=== PATIENT | female | born 1995 | race Caucasian/White ===

== ENCOUNTER → 2020-04-04 | Outpatient (CLI) | payer BC | LOC: LAB FS 17:30 | PROVIDERS: ATTEND Family Medicine | DX: Z01.419 Encounter for gynecological examination (general) (routine) without abnormal findings (principal) | CPT/HCPCS: 36415; 87210; 87491; 87591 ==

== ENCOUNTER → 2020-04-22 | Outpatient (CLI) | payer BC ==
[2020-04-22 11:15] LABS: BASOPHILS % (AUTO) 0 % (0-10); EOSINOPHILS # (AUTO) 0.1 10^3/uL (0.0-0.3); EOSINOPHILS % (AUTO) 1 % (0-10); HEMATOCRIT 40 % (35-52); HEMOGLOBIN 13.1 G/DL (11.5-16.0); LYMPHOCYTES # (AUTO) 2.8 X 10^3 (1.0-4.0); LYMPHOCYTES % (AUTO) 30 % (12-44); MEAN CORPUSCULAR HEMOGLOBIN 28 PG (25-34); MEAN CORPUSCULAR HGB CONC 33 G/DL (32-36); MEAN CORPUSCULAR VOLUME 85 FL (80-99); MEAN PLATELET VOLUME 9.8 FL (7.4-10.4); MONOCYTES # (AUTO) 0.8 X 10^3 (0.0-1.0); MONOCYTES % (AUTO) 8 % (0-12); NEUTROPHILS # (AUTO) 5.7 X 10^3 (1.8-7.8); NEUTROPHILS % (AUTO) 61 % (42-75); PLATELET COUNT 236 10^3/uL (130-400); RED CELL DISTRIBUTION WIDTH 13.7 % (10.0-14.5); WHITE BLOOD COUNT 9.4 10^3/uL (4.3-11.0)
== END ==
LOC: LAB FS 10:35
PROVIDERS: ATTEND Family Medicine
DX: Z34.00 Encounter for supervision of normal first pregnancy, unspecified trimester (principal)
CPT/HCPCS: 36415; 80055; 86703; 87088

== ENCOUNTER → 2020-05-09 | Outpatient (CLI) | payer BC ==
[2020-05-09 10:37] LABS: CLARITY,URINE CLEAR; COLOR,URINE DARK YELLOW; PROTEIN,URINE TRACE (NEGATIVE)
[2020-05-09 10:38] LABS: BACTERIA,URINE FEW /HPF; BILIRUBIN,URINE NEGATIVE (NEGATIVE); GLUCOSE, URINE (UA) NEGATIVE (NEGATIVE); KETONES,URINE TRACE (NEGATIVE); LEUKOCYTE ESTERASE ,URINE 1+ (NEGATIVE); NITRITE,URINE NEGATIVE (NEGATIVE)
== END ==
LOC: LAB FS 09:28
PROVIDERS: ATTEND Family Medicine
DX: R30.9 Painful micturition, unspecified (principal)
CPT/HCPCS: 81000; 87088

== ENCOUNTER → 2020-06-14 | Outpatient (CLI) | payer BC | LOC: LAB FS 09:08 | PROVIDERS: ATTEND Family Medicine | DX: Z34.90 Encounter for supervision of normal pregnancy, unspecified, unspecified trimester (principal); Z3A.00 Weeks of gestation of pregnancy not specified | CPT/HCPCS: 36415; 82105; 84702; 86336 ==

== ENCOUNTER → 2020-08-02 | Outpatient (CLI) | payer BC ==
[2020-08-02 15:14] LABS: CLARITY,URINE CLEAR; COLOR,URINE DARK YELLOW
[2020-08-02 15:15] LABS: BACTERIA,URINE TRACE /HPF; BILIRUBIN,URINE NEGATIVE (NEGATIVE); GLUCOSE, URINE (UA) NEGATIVE (NEGATIVE); KETONES,URINE TRACE (NEGATIVE); LEUKOCYTE ESTERASE ,URINE NEGATIVE (NEGATIVE); NITRITE,URINE NEGATIVE (NEGATIVE); PROTEIN,URINE NEGATIVE (NEGATIVE); SQUAMOUS EPITHELIAL CELL,UR 0-2 /HPF
== END ==
LOC: LAB FS 14:45
PROVIDERS: ATTEND Family Medicine
DX: R35.0 Frequency of micturition (principal); R30.0 Dysuria
CPT/HCPCS: 81000

== ENCOUNTER → 2020-09-12 | Outpatient (CLI) | payer BC ==
[2020-09-12 10:17] LABS: HEMOGLOBIN 10.8 G/DL (11.5-16.0); MEAN PLATELET VOLUME 9.2 FL (7.4-10.4); WHITE BLOOD COUNT 11.5 10^3/uL (4.3-11.0)
== END ==
LOC: LAB FS 09:38
PROVIDERS: ATTEND Family Medicine
DX: Z34.03 Encounter for supervision of normal first pregnancy, third trimester (principal)
CPT/HCPCS: 36415; 82950; 85027; 86780

== ENCOUNTER → 2020-10-18 | Outpatient (CLI) | payer BC | LOC: LABNPT 14:33 | PROVIDERS: ATTEND Family Medicine | DX: J02.9 Acute pharyngitis, unspecified (principal) | CPT/HCPCS: 87070 ==

== ENCOUNTER 2020-11-21 03:33 | Inpatient (IN) | payer BC ==
[2020-11-21] VITALS (47 sets, daily range): BP systolic 80–147; BP diastolic 42–100
[~2020-11-21] VITALS: Ht 185.5 cm; Wt 131.6 kg
--- NOTE | 2020-11-21 03:40 | NUR ---
ANNELIESE PARKER presented to unit via ambulation from ED, accompanied by Tamica Lauren, advanced manufacturing technician & SO, with c/o WATER BROKE. ANNELIESE PARKER weighed, gowned, voided, and to bed. EFHM and TOCO applied, VS taken. ANNELIESE PARKER oriented to bed controls, call light, TV, heat, and A/C controls.
[2020-11-21] MEDS: D5 LR IV SOLUTION 1,000 ML IV SCH ×2 (04:42→15:17)
[2020-11-21 04:49] LABS: BASOPHILS % (AUTO) 0 % (0-10); EOSINOPHILS # (AUTO) 0.1 10^3/uL (0.0-0.3); EOSINOPHILS % (AUTO) 1 % (0-10); HEMATOCRIT 32 % (35-52); HEMOGLOBIN 9.9 g/dL (11.5-16.0); LYMPHOCYTES # (AUTO) 2.5 10^3/uL (1.0-4.0); LYMPHOCYTES % (AUTO) 24 % (12-44); MEAN CORPUSCULAR HEMOGLOBIN 25 pg (25-34); MEAN CORPUSCULAR HGB CONC 31 g/dL (32-36); MEAN CORPUSCULAR VOLUME 81 fL (80-99); MEAN PLATELET VOLUME 10.3 fL (9.0-12.2); MONOCYTES # (AUTO) 0.8 10^3/uL (0.0-1.0); MONOCYTES % (AUTO) 8 % (0-12); NEUTROPHILS % (AUTO) 67 % (42-75); PLATELET COUNT 310 10^3/uL (130-400); WHITE BLOOD COUNT 10.4 10^3/uL (4.3-11.0)
[2020-11-21] MEDS ORDERED: SERT50TA2 PO (04:55)
[2020-11-21] MEDS ORDERED: PREN-142 PO (04:55)
[2020-11-21] MEDS ORDERED: CATHETER FLUSH 10 ML SYR IV SCH ×2 (06:00→22:00)
--- NOTE | 2020-11-21 06:52 | History & Physical-OB ---
OB - Chief Complaint & HPI Date/Time Date of Admission: Date of Admission: Nov 21, 2020 at 04:10 Date seen by a Provider: Nov 21, 2020 Time Seen by a Provider: 07:35 Chief Complaint/History OB-Reason for Admission/Chief: Rupture of Membranes Hx : 1 Hx Para: 0 Expected Date of Delivery: Dec 03, 2020 Gestational Age in Weeks: 38 Gestational Age in Days: 2 Admission Nurse Assessment Rev: Yes History of Labs A neg Antibody neg RI RPR NR HBsAg NR HIV NR GC neg GBS neg Allergies and Home Medications Allergies Coded Allergies: No Known Drug Allergies (Unverified , 11/21/20) Home Medications Vit No.124/Iron/FA 1 Each Tablet, 1 EACH PO DAILY, (Reported) Sertraline HCl 50 Mg Tablet, 50 MG PO DAILY, (Reported) Patient Home Medication List Home Medication List Reviewed: Yes OB - History Hx of Present Care: Yes Ultrasounds: Normal mid trimester US Obstetrical Complications: None Medical Complications: None Other Concerns: Late transfer of care from Dr. Baum Patient Past Medical History n/a OB - Admission Exam Physical Exam Vitals: Vital Signs HEENT: NCAT Heart: Rhythm Normal Lungs: Clear Abdomen: Gravid Extremities: Normal Reflexes: Normal Cervical Dilatation: 1cm Effacement: 75% Station: -2 Membranes: Ruptured Amniotic Fluid: Clear Heart Rate: 130's Accelerations: Accelerations Present Decelerations: No Decelerations Short Term Variability: Present Shelter Variability: Average (6-25) Contractions on Admission: >10 Minutes Apart Labs Laboratory Tests Test 11/21/20 04:30 Range/Units White Blood Count 10.4 4.3-11.0 10^3/uL Red Blood Count 3.90 3.80-5.11 10^6/uL Hemoglobin 9.9 L 11.5-16.0 g/dL Hematocrit 32 L 35-52 % Mean Corpuscular Volume 81 80-99 fL Mean Corpuscular Hemoglobin 25 25-34 pg Mean Corpuscular Hemoglobin Concent 31 L 32-36 g/dL Red Cell Distribution Width 14.3 10.0-14.5 % Platelet Count 310 130-400 10^3/uL Mean Platelet Volume 10.3 9.0-12.2 fL Immature Granulocyte % (Auto) 1 % Neutrophils (%) (Auto) 67 42-75 % Lymphocytes (%) (Auto) 24 12-44 % Monocytes (%) (Auto) 8 0-12 % Eosinophils (%) (Auto) 1 0-10 % Basophils (%) (Auto) 0 0-10 % Neutrophils # (Auto) 7.0 1.8-7.8 10^3/uL Lymphocytes # (Auto) 2.5 1.0-4.0 10^3/uL Monocytes # (Auto) 0.8 0.0-1.0 10^3/uL Eosinophils # (Auto) 0.1 0.0-0.3 10^3/uL Basophils # (Auto) 0.0 0.0-0.1 10^3/uL Immature Granulocyte # (Auto) 0.1 0.0-0.1 10^3/uL OB - Assessment/Plan/Diagnosis Assessment Assessment: rupture of membranes Admission Dx 25 yo @ 38.2 SROM GBS neg Admission Status: Inpatient Order (span 2 midnights) Reason for Inpatient Admission: SROM at 38 .2 Plan Plan: Expectant Management Other Plan Pitocin if dysfunction contraction pattern CLARY RUBIO DO Nov 21, 2020 06:52
[2020-11-21] MEDS: OXYTOCIN PRE-MIX DRIP 500 ML IV SCH ×2 (07:17→15:45)
[2020-11-21] MEDS ORDERED: fentaNYL 2 mcg/ml BUPIVA 0.125 100 ML ONE (09:52)
[2020-11-21] MEDS ORDERED: BUPIVACAINE 0.25% 30 ML (SENSORCAINE) VIAL ONE (10:22)
[2020-11-21] MEDS ORDERED: fentaNYL INJECTION 100 MCG/2 ML AMP ONE (10:22)
[2020-11-21] MEDS ORDERED: NALOXONE 0.4 MG/ML 1 ML (NARCAN) VIAL IV PRN (10:30)
[2020-11-21] MEDS ORDERED: CATHETER FLUSH 10 ML SYR IV PRN (10:30)
[2020-11-21] MEDS ORDERED: LACTATED RINGERS 1,000 ML IV ONE (10:30)
[2020-11-21] MEDS ORDERED: fentaNYL 2 mcg/ml BUPIVA 0.125 100 ML IV SCH (10:30)
[2020-11-21] MEDS ORDERED: LIDOCAINE/EPI 2% 1:200,00 (XYLOCAINE) 10 ML VIAL ONE (14:20)
--- NOTE | 2020-11-21 15:12 | NUR ---
spontaneous vaginal delivery of intact placenta by dr cifuentes. pitocion increased to 999ml/hr per dr rehman. assessing perineum for tears and lacerations. 1514 repair began using 3.[address]ide[address] cifuentes performing fundal massage , assessing vaginal bleeding. no clots expressed.
--- NOTE | 2020-11-21 15:25 | NUR ---
ffu/3. light flow no clots expressed. pericare performed by this RN. pitocin infusing as ordered. 1531 assisted out of stirrups. repositioned to high fowlers. s/o remains at bedside. reviewed diet order and room service. verbalized understanding. 1540 infant skin to skin at breast. immediate latch to breast. good suck noted. mother pleased.
--- NOTE | 2020-11-21 15:55 | NUR ---
ffu/1 light flow no clots expressed. denies need at this time.
--- NOTE | 2020-11-21 16:20 | NUR ---
fundal massage. u/1 light to moderate flow no clots expressed by Georgiana robles RN. IV saline locked.
--- NOTE | 2020-11-21 16:32 | NUR ---
FFu/1 light flow no clots expresed.
--- NOTE | 2020-11-21 16:54 | OB Labor & Delivery Record ---
L&D History Date of Service Date of Service: Nov 21, 2020 History Expected Date of Delivery: Dec 03, 2020 Gestational Age in Weeks: 38 Hx : 1 Hx Para: 0 Complications Events: Routine care Operative Indications (Cesarea: N/A-Vaginal Delivery Intrapartal Events: None L&D Stage1 Stage One Onset of Labor - Date: Nov 21, 2020 Monitors and Tracing Monitor Mode: External Heart Rate: 125 Monitor Accelerations: Uniform Monitor Decelerations: None Station: -1 Residential Specialist Variability: Average (6-10) Short Term Variability: Present Vital Signs VS - Last 72 Hours, by Label 11/21/20 11/21/20 11/21/20 11/21/20 03:51 03:51 07:15 07:30 Temp 36.7 36.7 Pulse 113 113 91 101 Resp 18 18 18 18 B/P (MAP) 140/87 (104) 134/86 (102) 129/74 (92) Pulse Ox 99 99 99 99 O2 Delivery Room Air Room Air Room Air Room Air 11/21/20 11/21/20 11/21/20 11/21/20 07:45 08:00 08:15 08:30 Temp 36.8 Pulse 110 104 92 93 Resp 18 18 18 18 B/P (MAP) 128/70 (89) 119/68 (85) 127/70 (89) 117/72 (87) O2 Delivery Room Air Room Air Room Air Room Air 11/21/20 11/21/20 11/21/20 11/21/20 08:45 09:00 09:15 09:30 Pulse 96 90 80 123 Resp 18 18 18 18 B/P (MAP) 109/72 (84) 127/75 (92) 128/75 (92) 132/76 (94) O2 Delivery Room Air Room Air Room Air Room Air 11/21/20 11/21/20 11/21/20 11/21/20 09:45 10:00 10:15 10:30 Temp 36.9 Pulse 72 69 85 69 Resp 18 18 18 18 B/P (MAP) 132/74 (93) 126/70 (88) 136/73 (94) 147/82 (103) Pulse Ox 99 O2 Delivery Room Air Room Air Room Air Room Air 11/21/20 11/21/20 11/21/20 2/1/21 10:35 10:40 10:45 10:50 Pulse 72 106 98 92 Resp 18 18 18 18 B/P (MAP) 138/70 (92) 131/76 (94) 109/60 (76) 89/52 (64) Pulse Ox 100 100 O2 Delivery Room Air Room Air Room Air Room Air 11/21/20 11/21/20 11/21/20 11/21/20 10:55 11:00 11:05 11:10 Pulse 68 74 85 79 Resp 18 18 16 18 B/P (MAP) 80/42 (55) 91/50 (64) 95/55 (68) 89/53 (65) Pulse Ox 100 100 100 100 O2 Delivery Room Air Room Air Room Air Room Air 11/21/20 11/21/20 11/21/20 11/21/20 11:30 11:40 11:55 12:15 Pulse 83 92 96 96 Resp 18 18 18 18 B/P (MAP) 96/51 (66) 96/52 (67) 104/56 (72) 95/51 (66) Pulse Ox 100 100 100 100 O2 Delivery Room Air Room Air Room Air Room Air 11/21/20 11/21/20 11/21/20 11/21/20 12:25 12:40 12:55 13:15 Pulse 96 113 99 101 Resp 18 18 18 18 B/P (MAP) 95/54 (68) 97/54 (68) 100/56 (71) 103/58 (73) Pulse Ox 99 99 99 98 O2 Delivery Room Air Room Air Room Air Room Air 11/21/20 11/21/20 11/21/20 13:25 13:40 14:00 Pulse 111 108 112 Resp 18 18 18 B/P (MAP) 103/58 (73) 139/77 (97) 126/73 (90) Pulse Ox 100 100 100 O2 Delivery Room Air Room Air Room Air Rupture of Membranes Spontaneous Ruture of Membrane: Yes Amniotic Membrane Rupture Time: 0215 Amniotic Membrane Fluid Desc.: Clear Vaginal Bleeding Description: Normal Show Progress/Notes Patient presented with SROM 1 cm dilated and not keturah. Started on pitocin augmentation max dose of 10 mu/min, she received an epidural and progressed to complete and 0 station L&D Stage2 Stage Two Stage II Date: Nov 21, 2020 Monitors and Tracing Monitor Mode: External Heart Rate: 125 Monitor Decelerations: None Short Term Variability: Present Position: Right Occiput Anterior Presentation: Vertex Cord Descript/Complications Cord Vessel Description: 3 Vessels Complications nuchal cord reduced x 1 Delivery Type Delivery Method: Spontaneous Vaginal Anterior Shoulder: Left Episiotomy/Perineal Laceration Laceraction(s)/Extensions: Yes Episiotomy Description: Midline, Perineal Extension/lac, 2nd degree Degree (describe repair) 2nd degree perineal laceration repaired using 3-0 rapide in usual fashion Condition of Delivery 1 minute Comment: 8 5 minute Comment: 9 Notes Live female weight 8 lbs 14 oz. Condition of Condition of : Living Exam: No Observed Abnormalities Resuscitation Resuscitation: N/A - Spontaneous Resp L&D Stage3 Stage Three Stage III Date: Nov 21, 2020 Pictocin Pitocin Administration mu/min: 10 Pitocin ml/hr: 10 Pitocin Administration Comment: 30 mu wide open at delivery of placenta Placenta Delivery Placenta Delivery: Spontaneous Delivery Summary Summary Estimated blood loss (mL): 350 Attending at delivery: Christiano Rubio DO Condition of Delivery Examined: Cervix Examined, Uterus Explored Post Hemorrhage: No Condition of Mother stable Condition of Infant (s) stable CHRISTIANO RUBIO DO Nov 21, 2020 16:54
--- NOTE | 2020-11-21 16:55 | NUR ---
infant placed skin to skin per mothers request. immediate latch with heavy staff assistance with positioning and latch. mother showing no initiative. continuing to offer support as needed.
[2020-11-21] MEDS ORDERED: BENZOCAINE/MENTHOL (DERMOPLAST) 60 ML CAN TP PRN (17:00)
[2020-11-21] MEDS ORDERED: MEASLES,MUMPS,RUBELLA 1 EA INJ SQ ONE (17:00)
[2020-11-21] MEDS ORDERED: WITCH HAZEL(TUCKS) 40 EA JAR TOP PRN (17:00)
[2020-11-21] MEDS ORDERED: DIBUCAINE (NUPERCAINAL) 1% OINT 30 GM TOP PRN (17:00)
[2020-11-21] MEDS ORDERED: OXYTOCIN PRE-MIX DRIP 500 ML IV SCH (17:00)
[2020-11-21] MEDS ORDERED: TETANUS,DIPTH,PERTUSS P/F (BOOSTRIX) 0.5 ML VIAL IM ONE (17:00)
[2020-11-21] MEDS ORDERED: HYDROcodone/APAP 5 MG/325 MG (LORTAB) TAB PO PRN (17:00)
--- NOTE | 2020-11-21 17:00 | Discharge Inst-Women's Service ---
Discharge Inst-Women's Serv Depart Medication/Instructions New, Converted or Re-Newed RX: RX on Chart Final Diagnosis PPD 1 NVD Problems Reviewed?: Yes Consults/Follow Up Additional Follow Up: Yes Orders/Referrals Dr. Rubio in 6 weeks Activity Activity: Activity as Tolerated Driving Instructions: No Driving for 1 Week NO SMOKING: NO SMOKING Nothing Inside Vagina: No Douching, No Mio, No Tampons Diet Discharge Diet: No Restrictions Symptoms to Report to : Bleeding Excessive, Pain Increased, Fever Over 101 Degrees F, Vaginal Bleeding Increase, Questions/Concerns For Any Problems or Questions: Contact Your Physician CLARY RUBIO DO Nov 21, 2020 17:00
[2020-11-21] MEDS ORDERED: IBUP-844 PO (17:02)
[2020-11-21] MEDS ORDERED: DCS100C PO (17:02)
[2020-11-21] MEDS ORDERED: ACHD5005 PO (17:02)
[2020-11-21] MEDS: IBUPROFEN 600 MG (MOTRIN) TAB PO SCH ×2 (18:08→23:33)
--- NOTE | 2020-11-21 20:00 | NUR ---
RN to room, Pt denies pain, VS WNL, plan of care reviewed with pt and on infant. Feeding record explained. Fresh ice water given.
[2020-11-21] MEDS: DOCUSATE SODIUM 100 MG (COLACE) CAP PO SCH (20:54)
--- NOTE | 2020-11-21 21:15 | NUR ---
Pt up to void at this time, void noted, pericare explained, then pt to chair to breastfeed .
[2020-11-22 04:00] VITALS: BP 114/62
--- NOTE | 2020-11-22 04:00 | NUR ---
Rn to room, spit up and pt needing help, pt holding infant on side and patting 's back, Rn grabbed infant and sat up and burped infant and bulb suctioned mouth. Clear/yellow mucous noted. to left breast with shield. Repeated attempts for latch, latched a few times after repeated attempts and fed for maybe 5min. Pt tearful and exhausted, discussed sns feeding or finger feeding. Pt desires RN to finger feed and to nsy while parents sleep.
[2020-11-22] MEDS: IBUPROFEN 600 MG (MOTRIN) TAB PO SCH ×3 (05:33→20:18)
[2020-11-22 06:13] LABS: BASOPHILS % (AUTO) 0 % (0-10); EOSINOPHILS % (AUTO) 0 % (0-10); HEMATOCRIT 27 % (35-52); HEMOGLOBIN 8.3 g/dL (11.5-16.0); LYMPHOCYTES # (AUTO) 2.5 10^3/uL (1.0-4.0); LYMPHOCYTES % (AUTO) 21 % (12-44); MEAN CORPUSCULAR HEMOGLOBIN 26 pg (25-34); MEAN CORPUSCULAR HGB CONC 31 g/dL (32-36); MEAN CORPUSCULAR VOLUME 82 fL (80-99); MEAN PLATELET VOLUME 10.1 fL (9.0-12.2); MONOCYTES # (AUTO) 0.9 10^3/uL (0.0-1.0); MONOCYTES % (AUTO) 8 % (0-12); NEUTROPHILS # (AUTO) 8.6 10^3/uL (1.8-7.8); NEUTROPHILS % (AUTO) 71 % (42-75); PLATELET COUNT 248 10^3/uL (130-400); WHITE BLOOD COUNT 12.2 10^3/uL (4.3-11.0)
--- NOTE | 2020-11-22 07:35 | Postpartum Progress Note ---
Note Note Day # 1 Subjective: Patient is without complaints. Ambulating, voiding. Tolerating a regular diet without nausea or vomiting. Normal lochia. Pain is well controlled with oral pain medications. Objective: Physical Exam: General - Alert and oriented, no apparent distress Abdomen - Soft, appropriately tender to palpation, non-distended, fundus firm at umbilicus Extremities - no edema, negative Luis Alberto's bilaterally Assessment: PPD 1 NVD Acute blood loss anemia Plan: Routine care. Encourage breast feeding. Encourage ambulation. Ferrous sulfate supplementation. Plan for discharge today, possibly tomorrow Vitals - Labs Vital Signs - I&O Vital Signs Date Time Temp Pulse Resp B/P (MAP) Pulse Ox O2 Delivery O2 Flow Rate FiO2 11/22/20 04:00 36.7 103 18 114/62 (79) Room Air 11/21/20 23:34 36.8 107 18 116/64 (81) 98 Room Air 11/21/20 20:00 36.8 120 18 120/72 (88) 98 Room Air 11/21/20 17:12 83 18 122/66 (84) 100 Room Air 11/21/20 16:55 98 18 147/70 (95) 100 Room Air 11/21/20 16:40 36.8 107 18 114/60 (78) 100 Room Air 11/21/20 16:25 37.1 98 18 124/60 (81) 100 Room Air 11/21/20 16:10 113 18 133/78 (96) 100 Room Air 11/21/20 15:55 37.0 122 18 113/59 (77) 100 Room Air 11/21/20 15:25 37.7 115 18 104/54 (71) 100 Room Air 11/21/20 15:00 134 18 128/61 (83) 100 Room Air 11/21/20 14:45 148 18 139/100 (113) 100 Room Air 11/21/20 14:30 115 18 129/70 (89) 100 Room Air 11/21/20 14:15 37.3 110 18 120/76 (91) 100 Room Air 11/21/20 14:00 112 18 126/73 (90) 100 Room Air 11/21/20 13:40 108 18 139/77 (97) 100 Room Air 11/21/20 13:25 111 18 103/58 (73) 100 Room Air 11/21/20 13:15 101 18 103/58 (73) 98 Room Air 11/21/20 12:55 99 18 100/56 (71) 99 Room Air 11/21/20 12:40 113 18 97/54 (68) 99 Room Air 11/21/20 12:25 96 18 95/54 (68) 99 Room Air 11/21/20 12:15 96 18 95/51 (66) 100 Room Air 11/21/20 11:55 96 18 104/56 (72) 100 Room Air 11/21/20 11:40 92 18 96/52 (67) 100 Room Air 11/21/20 11:30 83 18 96/51 (66) 100 Room Air 11/21/20 11:10 79 18 89/53 (65) 100 Room Air 11/21/20 11:05 85 16 95/55 (68) 100 Room Air 11/21/20 11:00 74 18 91/50 (64) 100 Room Air 11/21/20 10:55 68 18 80/42 (55) 100 Room Air 11/21/20 10:50 92 18 89/52 (64) 100 Room Air 11/21/20 10:45 98 18 109/60 (76) 100 Room Air 11/21/20 10:40 106 18 131/76 (94) Room Air 11/21/20 10:35 72 18 138/70 (92) Room Air 11/21/20 10:30 69 18 147/82 (103) Room Air 11/21/20 10:15 36.9 85 18 136/73 (94) 99 Room Air 11/21/20 10:00 69 18 126/70 (88) Room Air 11/21/20 09:45 72 18 132/74 (93) Room Air 11/21/20 09:30 123 18 132/76 (94) Room Air 11/21/20 09:15 80 18 128/75 (92) Room Air 11/21/20 09:00 90 18 127/75 (92) Room Air 11/21/20 08:45 96 18 109/72 (84) Room Air 11/21/20 08:30 93 18 117/72 (87) Room Air 11/21/20 08:15 92 18 127/70 (89) Room Air 11/21/20 08:00 104 18 119/68 (85) Room Air 11/21/20 07:45 36.8 110 18 128/70 (89) Room Air Labs Laboratory Tests 11/22/20 05:35: White Blood Count 12.2H, Red Blood Count 3.23L, Hemoglobin 8.3L, Hematocrit 27L, Mean Corpuscular Volume 82, Mean Corpuscular Hemoglobin 26, Mean Corpuscular Hemoglobin Concent 31L, Red Cell Distribution Width 14.3, Platelet Count 248, Mean Platelet Volume 10.1, Immature Granulocyte % (Auto) 1, Neutrophils (%) (Auto) 71, Lymphocytes (%) (Auto) 21, Monocytes (%) (Auto) 8, Eosinophils (%) (Auto) 0, Basophils (%) (Auto) 0, Neutrophils # (Auto) 8.6H, Lymphocytes # (Auto) 2.5, Monocytes # (Auto) 0.9, Eosinophils # (Auto) 0.0, Basophils # (Auto) 0.0, Immature Granulocyte # (Auto) 0.1 CLARY RUBIO DO Nov 22, 2020 07:35
[2020-11-22] MEDS: FERROUS SULF 325 MG (IRON) TAB PO SCH (08:38)
[2020-11-22] MEDS: DOCUSATE SODIUM 100 MG (COLACE) CAP PO SCH ×2 (08:38→20:18)
[2020-11-22] MEDS: PRENATAL VITAMIN 1 EA TAB PO SCH ×2 (08:38→08:39)
[2020-11-22 08:42] VITALS: BP 133/77
--- NOTE | 2020-11-22 08:42 | NUR ---
initial shift assessment completed, see interventions for further. POC reviewed with pt and s/o, states understanding. questions answered prn r/t care. will cont to monitor.
--- NOTE | 2020-11-22 09:35 | Anesthesia-Regional Post-Op ---
Regional Patient Condition Mental Status: Alert, Oriented x3 Circulation: Same as Pre-Op Headache: Absent Sensation: Full Recovery Motor Block: Absent Post Op Complications Complications None Follow Up Care/Instructions Patient Instructions None needed. Anesthesia/Patient Condition Patient is doing well, no complaints, stable vital signs, no apparent adverse anesthesia problems. No complications reported per nursing. LUIS WISDOM CRNA Nov 22, 2020 09:35
[2020-11-22 14:00] VITALS: BP 120/77
--- NOTE | 2020-11-22 15:15 | NUR ---
Report rec'd from Kassandra Garrido RN at this time. Cares assumed.
[2020-11-23] VITALS: BP 131/78
[2020-11-23] MEDS: IBUPROFEN 600 MG (MOTRIN) TAB PO SCH ×2 (00:35→09:40)
--- NOTE | 2020-11-23 00:44 | NUR ---
PT REPORTED THAT BABY LATCHED WELL AND ATE UNTIL FULL. PT ANXIETY R/T INFANT FEEDING HAS GOTTEN BETTER. PT HAS NO COMPLAINTS AT THIS TIME.
[2020-11-23 04:00] VITALS: BP 122/69
--- NOTE | 2020-11-23 08:20 | NUR ---
here. dismissal orders received.
--- NOTE | 2020-11-23 08:37 | Postpartum Progress Note ---
Note Note Day # 2 Subjective: Patient is without complaints. Ambulating, voiding. Tolerating a regular diet without nausea or vomiting. Normal lochia. Pain is well controlled with oral pain medications. Objective: Physical Exam: General - Alert and oriented, no apparent distress Abdomen - Soft, appropriately tender to palpation, non-distended, fundus firm at umbilicus Extremities - no edema, negative Luis Alberto's bilaterally Assessment: PPD 2 NVD Plan: Routine care. Encourage breast feeding. Encourage ambulation. Ferrous sulfate supplementation. Plan for discharge today Vitals - Labs Vital Signs - I&O Vital Signs Date Time Temp Pulse Resp B/P (MAP) Pulse Ox O2 Delivery O2 Flow Rate FiO2 11/23/20 04:00 36.6 90 16 122/69 (86) 98 Room Air 11/23/20 00:00 36.4 95 18 131/78 (95) 99 Room Air 11/22/20 14:00 36.3 98 18 120/77 (91) 100 Room Air 11/22/20 08:42 36.3 81 18 133/77 (95) 96 Room Air CLARY RUBIO DO Nov 23, 2020 08:37
[2020-11-23] MEDS: DOCUSATE SODIUM 100 MG (COLACE) CAP PO SCH (09:38)
[2020-11-23] MEDS: FERROUS SULF 325 MG (IRON) TAB PO SCH (09:38)
--- NOTE | 2020-11-23 09:40 | NUR ---
initial shift assessment completed, see interventions for further. pt tearful, crying. reports happy r/t dismissal home. "I'm not sure why I'm crying." pt reports hx of depression and currently taking Zoloft. reviewed reportable sx's with pt and s/o.
[2020-11-23 11:00] VITALS: BP 117/70
--- NOTE | 2020-11-23 11:30 | NUR ---
dismissal instructions given, reports understanding. reviewed medications dosage and administration schedule. signature page signed, placed on chart.
--- NOTE | 2020-11-23 14:10 | NUR ---
pt ambulated to private vehicle with staff, infant and s/o @ side. infant secured in rear facing car seat. pt stable with no sx's of distress noted.
== END 2020-11-23 14:10 | disposition home or self-care (01) | DRG 806 ==
LOC: WSo 03:33 → LDRP 03:34 → WSo 04:08 → LDRP 04:10
PROVIDERS: ADMIT Obstetrics & Gynecology; ATTEND Obstetrics & Gynecology
PROC: 10E0XZZ Delivery of Products of Conception, External Approach (ICD-10-PCS; principal; 2020-11-21)
PROC: 0KQM0ZZ Repair Perineum Muscle, Open Approach (ICD-10-PCS; 2020-11-21)
DX: O69.81X0 Labor and delivery complicated by cord around neck, without compression, not applicable or unspecified (principal); D62 Acute posthemorrhagic anemia; Z37.0 Single live birth; Z20.822 Contact with and (suspected) exposure to COVID-19; Z3A.38 38 weeks gestation of pregnancy; O70.1 Second degree perineal laceration during delivery; O90.81 Anemia of the puerperium
CPT/HCPCS: 36415; 85025; 86850; 86900; 86901; 87635; 99212

== ENCOUNTER → 2021-05-04 | Outpatient (CLI) | payer BC ==
[~2021-05-04] MED LIST: ACHD5005 PO; DCS100C PO; IBUP-844 PO; PREN-142 PO; SERT50TA2 PO
== END ==
LOC: LAB FS 09:40
PROVIDERS: ATTEND Family Medicine
DX: Z01.83 Encounter for blood typing (principal)
CPT/HCPCS: 36415; 86850